=== PATIENT | female | born 1950 | race Caucasian/White ===

== ENCOUNTER 2023-09-29 11:17 | Emergency (ER) | payer MEDICARE, OTHER, SELFPAY ==
[2023-09-29 11:29] VITALS: BP 137/60; PULSE 58; RESP 16; TEMP 36.4; O2SAT 99
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
== END 2023-09-29 11:51 | disposition home or self-care (01) ==
PROVIDERS: Emergency Provider Nurse Practitioner Family
DX: T21.11XA Burn of first degree of chest wall, initial encounter (principal); X13.1XXA Other contact with steam and other hot vapors, initial encounter; E78.00 Pure hypercholesterolemia, unspecified; I10 Essential (primary) hypertension; K21.9 Gastro-esophageal reflux disease without esophagitis; E11.9 Type 2 diabetes mellitus without complications; Z79.4 Long term (current) use of insulin; Z95.5 Presence of coronary angioplasty implant and graft
CPT/HCPCS: 99213; G0463